=== PATIENT | male | born 1955 | race Hispanic/Latino ===

== ENCOUNTER 2018-11-13 16:10 | Emergency (ER) | payer BC, SELFPAY ==
[2018-11-13] MEDS ORDERED: EPINEPHrine 1 MG/10 ML Abboject SYRINGE ONE (18:00)
[2018-11-13] MEDS ORDERED: Calcium Chloride 1 GM/10 ML Abboject SYRINGE ONE (18:00)
[2018-11-13] MEDS ORDERED: Magnesium 5 GM/10 ML Abboject SYRINGE ONE (18:00)
[2018-11-13] MEDS ORDERED: Sodium Bicarb 50 MEQ/50 ML Abboject 8.4% SYRINGE ONE (18:00)
== END 2018-11-13 16:43 | disposition expired ==
LOC: ERS 16:10
DX: I46.9 Cardiac arrest, cause unspecified (principal); I10 Essential (primary) hypertension; E78.5 Hyperlipidemia, unspecified
CPT/HCPCS: 31500; 92950; 96374; 96375; 99292; J0171; J3475